=== PATIENT | female | born 1940 | race Caucasian/White ===

== ENCOUNTER → 2021-01-01 | Outpatient (CLI) | payer MEDICARE, OTHER ==
--- NOTE | 2021-01-01 18:52 | Diagnostic Imaging Report ---
INDICATION: Right knee pain. TECHNIQUE: AP, oblique, and lateral views of the right knee are obtained. FINDINGS: No fracture or acute bony abnormality is seen. There is prominent medial and lateral joint space narrowing with chondrocalcinosis and osteophyte formation. There is patellofemoral spurring. There is a small joint effusion. 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 No acute fracture. Small right knee joint effusion. Dictated by: Dictated on workstation # [id number]
== END ==
LOC: RAD FS 14:30
PROVIDERS: ATTEND Nurse Practitioner
DX: M17.11 Unilateral primary osteoarthritis, right knee (principal); M11.261 Other chondrocalcinosis, right knee
CPT/HCPCS: 73562

== ENCOUNTER → 2021-04-26 | Outpatient (CLI) | payer MEDICARE, OTHER ==
--- NOTE | 2021-04-26 09:32 | Diagnostic Imaging Report ---
INDICATION: Right rib pain AP and oblique image of right ribs are obtained. No fracture or malalignment is identified. There is no pneumothorax or pleural reaction. There is no evidence of pulmonary contusion. IMPRESSION: No radiographic evidence of displaced right rib fracture. Dictated by: Dictated on workstation # [id number]
== END ==
LOC: RAD FS 09:11
PROVIDERS: ATTEND Surgery
DX: R07.81 Pleurodynia (principal)
CPT/HCPCS: 71100

== ENCOUNTER 2021-05-20 05:59 | Outpatient (CLI) | payer MEDICARE, OTHER ==
[~2021-05-20] VITALS: Ht 167.6 cm; Wt 102.0 kg
[2021-05-20] MEDS ORDERED: HYDR25TA4 PO (14:08)
[2021-05-20] MEDS ORDERED: LISI40TA9 PO (14:08)
[2021-05-20] MEDS ORDERED: METO-333 PO (14:08)
[2021-05-20] MEDS ORDERED: TRM50T PO (14:08)
[2021-05-20] MEDS ORDERED: ATOR40TA70 PO (14:08)
[2021-05-20] MEDS ORDERED: METH2.5T PO (14:08)
== END 2021-05-20 14:53 | disposition home or self-care (01) ==
LOC: PREOP 05:59
PROVIDERS: ATTEND Surgery
DX: Z01.818 Encounter for other preprocedural examination (principal)

== ENCOUNTER → 2021-05-22 | Outpatient (CLI) | payer MEDICARE, OTHER ==
[~2021-05-22] MED LIST: ATOR40TA70 PO; HYDR25TA4 PO; LISI40TA9 PO; METH2.5T PO; METO-333 PO; TRM50T PO
[2021-05-22 13:39] LABS: CREATININE SERUM 1.6 MG/DL (0.60-1.30)
--- NOTE | 2021-05-22 14:36 | Diagnostic Imaging Report ---
EXAMINATION: CT abdomen and pelvis without contrast. TECHNIQUE: Multiple contiguous axial images were obtained through the abdomen and pelvis without the use of intravenous contrast. All CT scans use one or more of the following dose optimizing techniques: automated exposure control, MA and/or KvP adjustment based on patient size and exam type or iterative reconstruction. HISTORY: Abdominal pain COMPARISON: None available. FINDINGS: Lung bases: The lung bases are clear. Solid organs: The liver is normal. Multiple layering hyperdense stones within the gallbladder. There is no biliary ductal dilation. Pancreas is normal. Spleen is normal. Adrenal glands are normal. The kidneys are normal without visualized calculus or hydronephrosis. Bowel: There is a small hiatal hernia. There is no bowel obstruction. There is sigmoid diverticulosis. Appendix is normal. Peritoneum: There is no intraperitoneal free fluid or free air. No suspicious lymphadenopathy. Vasculature: Calcification of the aorta without aneurysm. Musculoskeletal: Degenerative changes of the spine without suspicious osseous lesion or compression fracture. There is a small fat-containing periumbilical hernia. There are bilateral L5 pars defects. Pelvis: The uterus and adnexa are normal. The urinary bladder is normal. IMPRESSION: 1. No acute abnormality in the abdomen or pelvis. 2. Sigmoid diverticulosis without findings of diverticulitis. Dictated by: Dictated on workstation # [id number]
== END ==
LOC: LAB FS 12:43
PROVIDERS: ATTEND Surgery
DX: K57.30 Diverticulosis of large intestine without perforation or abscess without bleeding (principal)
CPT/HCPCS: 36415; 74176; 82565; 84520

== ENCOUNTER → 2021-05-24 | Outpatient (CLI) | payer MEDICARE, OTHER ==
[~2021-05-24] MED LIST changes: +PANT40TA2 PO
== END ==
LOC: LAB FS 10:10
PROVIDERS: ATTEND Surgery
DX: Z01.812 Encounter for preprocedural laboratory examination (principal); K21.9 Gastro-esophageal reflux disease without esophagitis; Z20.822 Contact with and (suspected) exposure to COVID-19
CPT/HCPCS: 87635

== ENCOUNTER 2021-05-27 07:25 | Day surgery (SDC) | payer MEDICARE, OTHER ==
[~2021-05-27] VITALS: Ht 167.6 cm; Wt 102.0 kg
[~2021-05-27 07:25] MED LIST changes: -PANT40TA2 PO
[2021-05-27] MEDS ORDERED: LACTATED RINGERS 1,000 ML IV ONE (07:28)
[2021-05-27] MEDS ORDERED: LACTATED RINGERS 1,000 ML IV STA (07:32)
[2021-05-27] MEDS ORDERED: proPOfol 200 MG/20 ML (DIPRIVAN) VIAL IV ONE (07:43)
[2021-05-27] MEDS ORDERED: HURRICAINE EXT TUBE (BENZOCAINE) XX PRN (07:45)
[2021-05-27 07:46] VITALS: BP 240/112
--- NOTE | 2021-05-27 08:11 | Progress Note-Pre Operative ---
Pre-Operative Progress Note H&P Reviewed The H&P was reviewed, patient examined and no changes noted. Time Seen by Provider: 08:08 Date H&P Reviewed: May 27, 2021 Time H&P Reviewed: 08:08 Pre-Operative Diagnosis: Abd pain r/o RANULFO RANDALL DO May 27, 2021 08:11
[2021-05-27 08:50] VITALS: BP 119/57
--- NOTE | 2021-05-27 08:53 | Progress Note-Post Operative ---
Post-Operative Progess Note Surgeon (s)/Acute Care Surgeon (s) Surgeon RANULFO ASENCIO DO Acute Care Surgeon: none Pre-Operative Diagnosis Abd pain r/o GERD Post-Operative Diagnosis Duodenal ulcer Gastritis Hiatal hernia Procedure & Operative Findings Date of Procedure 05/27/21 Procedure Performed/Findings EGD with bx PROCEDURE NOTE: After informed consent was obtained, the patient was brought to the endoscopy suite, placed in bed in left lateral decubitus position. She was administered IV sedation by the SUPERINTENDENT COMPRESSOR STATIONS who then monitored vitals the entire time, heart rate, blood pressure and pulse ox and the scope was inserted down the mouth through the esophagus into the stomach. Pushed into the stomach and pushed past the antrum into the duodenum. In the duodenum saw a couple small ulcers and took a picture and then biopsied one. Pulled back and did a biopsy of antrum; for moderate Gastritis. Then retroflexed the scope and saw a small hiatal hernia, took a picture of this and then pulled the scope into the GE junction. Then did a biopsy of the GE junction. Pushed the scope back into the stomach, suctioned all the air out of the stomach. At this point pulled the scope up the esophagus and out the mouth. The patient tolerated the procedure, and she recovered in endoscopy suite. Anesthesia Type IV sedation by SUPERINTENDENT COMPRESSOR STATIONS Estimated Blood Loss Estimated blood loss (mL): scant Specimens/Packing Specimens Removed duodenal bx antral bx GE jxn bx RANULFO ASENCIO DO May 27, 2021 08:53
[2021-05-27 08:55] VITALS: BP 128/72
[2021-05-27] MEDS ORDERED: PANT40TA2 PO (08:55)
--- NOTE | 2021-05-27 08:56 | Endoscopy Discharge Instruct ---
Endo Procedure/Findings Findings 1.: Duodenal Ulcer 2.: Gastritis 3.: Hiatal Hernia Discharge Instructions - Activity: You might feel a little sleepy until tomorrow. This is due to the medicine you received to relax you. Until tomorrow, you should: NOT drive a car, operate machinery or power tools. NOT drink any alcoholic beverages. NOT make any important decisions or sign importortant papers. Do not return to work until tomorrow, unless otherwise instructed. Resume previous activities tomorrow. Diet: Start by taking liquids. If you tolerate liquids, advance to solid food. 1.: EGD in 1 year Notify Physician - If you experience excessive bleeding, unusual abdominal pain, fever, or chest pain, contact your doctor immediately. RANULFO ASENCIO DO May 27, 2021 08:56
[2021-05-27 09:00] VITALS: BP 128/72
[2021-05-27 09:18] VITALS: BP 125/70
--- NOTE | 2021-05-27 12:49 | Anesthesia-General Post-Op ---
MAC Patient Condition Mental Status/LOC: Same as Preop Cardiovascular: Satisfactory Nausea/Vomiting: Absent Respiratory: Satisfactory Pain: Controlled Complications: Absent Post Op Complications Complications None Follow Up Care/Instructions Patient Instructions None needed. Anesthesiology Discharge Order Discharge Order Patient is doing well, no complaints, stable vital signs, no apparent adverse anesthesia problems. No complications reported per nursing. BJORN GARCIA CRNA May 27, 2021 12:49
== END 2021-05-27 09:22 | disposition home or self-care (01) ==
LOC: ENDO 07:25
PROVIDERS: ATTEND Surgery
DX: K26.9 Duodenal ulcer, unspecified as acute or chronic, without hemorrhage or perforation (principal); K29.80 Duodenitis without bleeding; K44.9 Diaphragmatic hernia without obstruction or gangrene; K29.70 Gastritis, unspecified, without bleeding; I10 Essential (primary) hypertension; E78.00 Pure hypercholesterolemia, unspecified; K80.20 Calculus of gallbladder without cholecystitis without obstruction; K21.9 Gastro-esophageal reflux disease without esophagitis; Z79.899 Other long term (current) drug therapy

== ENCOUNTER → 2021-12-05 | Outpatient (CLI) | payer MEDICARE, OTHER ==
[~2021-12-05] VITALS: Ht 167 cm; Wt 103.0 kg
[~2021-12-05] MED LIST changes: +MELO15TA14 PO; +PANT40TA2 PO
== END | disposition home or self-care (01) ==
LOC: PREOP 06:15
PROVIDERS: ATTEND Surgery
DX: Z01.818 Encounter for other preprocedural examination (principal)

== ENCOUNTER 2021-12-16 08:20 | Day surgery (SDC) | payer MEDICARE, OTHER ==
[~2021-12-16] VITALS: Ht 167 cm; Wt 103.0 kg
[2021-12-16] MEDS ORDERED: LACTATED RINGERS 1,000 ML IV STA (08:27)
[2021-12-16] MEDS ORDERED: HURRICAINE EXT TUBE (BENZOCAINE) XX PRN (08:30)
--- NOTE | 2021-12-16 08:37 | Progress Note-Pre Operative ---
Pre-Operative Progress Note H&P Reviewed The H&P was reviewed, patient examined and no changes noted. Time Seen by Provider: 08:35 Date H&P Reviewed: December 16, 2021 Time H&P Reviewed: 08:35 Pre-Operative Diagnosis: Hx of duodenal ulcer RANULFO ASENCIO DO December 16, 2021 08:36
[2021-12-16 08:50] VITALS: BP 226/97
[2021-12-16 08:58] VITALS: BP 158/116
[2021-12-16] MEDS ORDERED: proPOfol 200 MG/20 ML (DIPRIVAN) VIAL IV ONE (09:14)
[2021-12-16 09:35] VITALS: BP 109/59
--- NOTE | 2021-12-16 09:36 | Progress Note-Post Operative ---
Post-Operative Progess Note Surgeon (s)/Finance Professional (s) Surgeon RANULFO ASENCIO DO Finance Professional: none Pre-Operative Diagnosis Hx of duodenal ulcer Post-Operative Diagnosis Gastritis Hiatal Hernia Procedure & Operative Findings Date of Procedure 12/16/21 Procedure Performed/Findings EGD with bx PROCEDURE NOTE: After informed consent was obtained, the patient was brought to the endoscopy suite, placed in bed in left lateral decubitus position. She was administered IV sedation by the FORMULA ROOM WORKER who then monitored vitals the entire time, heart rate, blood pressure and pulse ox and the scope was inserted down the mouth through the esophagus into the stomach. Pushed into the stomach and noted some Gastritis at the antrum. Pushed into into the duodenum and did not see any ulceration or inflammation; got to the 2-3rd portion. Pulled back and did a biopsy of antrum, then retroflexed the scope, saw a small hiatal hernia and took a picture of this. Then pulled the scope into the GE junction and took a picture of the GE jxn and then did a biopsy of the GE junction. Pushed the scope back into the stomach, suctioned all the air out of the stomach. At this point pulled the scope up the esophagus and out the mouth. The patient tolerated the procedure, and she recovered in endoscopy suite. Anesthesia Type IV sedation by FORMULA ROOM WORKER Estimated Blood Loss Estimated blood loss (mL): scant Specimens/Packing Specimens Removed antral bx GE jxn bx RANULFO ASENCIO DO December 16, 2021 09:36
--- NOTE | 2021-12-16 09:37 | Endoscopy Discharge Instruct ---
Endo Procedure/Findings Findings 1.: Gastritis 2.: Hiatal Hernia Discharge Instructions - Activity: You might feel a little sleepy until tomorrow. This is due to the medicine you received to relax you. Until tomorrow, you should: NOT drive a car, operate machinery or power tools. NOT drink any alcoholic beverages. NOT make any important decisions or sign importortant papers. Do not return to work until tomorrow, unless otherwise instructed. Resume previous activities tomorrow. Diet: Start by taking liquids. If you tolerate liquids, advance to solid food. 1.: EGD in 3 years Notify Physician - If you experience excessive bleeding, unusual abdominal pain, fever, or chest pain, contact your doctor immediately. RANULFO ASENCIO DO December 16, 2021 09:37
[2021-12-16 09:40] VITALS: BP 131/86
[2021-12-16 09:55] VITALS: BP 163/47
[2021-12-16 10:07] VITALS: BP 163/47
--- NOTE | 2021-12-16 13:00 | Anesthesia-General Post-Op ---
MAC Patient Condition Mental Status/LOC: Same as Preop Cardiovascular: Satisfactory Nausea/Vomiting: Absent Respiratory: Satisfactory Pain: Controlled Complications: Absent Post Op Complications Complications None Follow Up Care/Instructions Patient Instructions None needed. Anesthesiology Discharge Order Discharge Order Patient is doing well, no complaints, stable vital signs, no apparent adverse anesthesia problems. No complications reported per nursing. JOSE ENRIQUE DODD CRNA December 16, 2021 13:00
== END 2021-12-16 10:07 | disposition home or self-care (01) ==
LOC: ENDO 08:20
PROVIDERS: ATTEND Surgery
DX: K29.70 Gastritis, unspecified, without bleeding (principal); K20.90 Esophagitis, unspecified without bleeding; K44.9 Diaphragmatic hernia without obstruction or gangrene; K31.89 Other diseases of stomach and duodenum; E66.9 Obesity, unspecified; Z68.36 Body mass index [BMI] 36.0-36.9, adult; Z87.11 Personal history of peptic ulcer disease
CPT/HCPCS: 88305